=== PATIENT | female | born 1935 | race Caucasian/White ===

== ENCOUNTER 2020-01-29 22:11 | Emergency (ER) | payer MEDICARE, BC ==
[2020-01-29 22:26] VITALS: BP 179/105; PULSE 72; RESP 20; TEMP 98.6
[2020-01-29] MEDS ORDERED: BACITRACIN OINT 1 EACH PACKET TOPICAL ONE (22:54)
--- NOTE | 2020-01-29 22:57 | ED ---
Wound/Laceration HPI - General Chief Complaint: Wound/Laceration Stated Complaint: arm lac Time Seen by Provider: 01/29/20 22:32 Source: patient, family Mode of arrival: ambulatory Limitations: no limitations - History of Present Illness Initial Comments: 84-year-old female patient presents to the emergency department today for evaluation of laceration to the right wrist. Patient states that she hit her wrist on the door jam causing the injury. This occurred a few hours ago and patient continues to have bleeding to the area. They did clean the wound and apply a bandage. Patient denies any wrist pain or difficulty with range of motion. Denies numbness or tingling to the hands. She states she did receive a tetanus vaccine 1 year ago. Denies any other injury or concerns. Patient denies any headache, neck pain, back pain, chest pain, shortness of breath, dizziness, weakness, abdominal pain, nausea, vomiting, or difficulties with bowel movements or urination. - Related Data Allergies Allergy/AdvReac Type Severity Reaction Status Date / Time No Known Allergies Allergy Verified 01/29/20 22:26 Review of Systems ROS Statement: Those systems with pertinent positive or pertinent negative responses have been documented in the HPI. ROS Other: All systems not noted in ROS Statement are negative. Past Medical History Past Medical History: No Reported History History of Any Multi-Drug Resistant Organisms: None Reported Past Surgical History: No Surgical Hx Reported Past Psychological History: No Psychological Hx Reported Smoking Status: Never smoker Past Alcohol Use History: None Reported Past Drug Use History: None Reported General Exam Limitations: no limitations General appearance: alert, in no apparent distress, other (This is a well- developed, well-nourished adult female patient in no acute distress. Vital signs upon presentation are temperature 98.6F, pulse 72, respirations 20, blood pressure 179/105, pulse ox 97% on room air.) Respiratory exam: Present: normal lung sounds bilaterally. Absent: respiratory distress, wheezes, rales, rhonchi, stridor Cardiovascular Exam: Present: regular rate, normal rhythm, normal heart sounds. Absent: systolic murmur, diastolic murmur, rubs, gallop, clicks Extremities exam: Present: full ROM, normal capillary refill, other (There is sm all skin tear to the left wrist. Mild bleeding noted. full range of motion is intact to the right wrist. No anatomical snuffbox tenderness. Skin is otherwise pink, warm, dry. Cap refills less than 3 seconds. Radial pulses 2+.). Absent: normal inspection, tenderness, pedal edema, joint swelling, calf tenderness Neurological exam: Present: alert, oriented X3, CN II-XII intact Psychiatric exam: Present: normal affect, normal mood Skin exam: Present: warm, dry, intact, normal color. Absent: rash Course Vital Signs 01/29/20 22:22 Temperature 98.6 F Pulse Rate 72 Respiratory 20 Rate Blood Pressure 179/105 O2 Sat by Pulse 97 Oximetry Medical Decision Making - Medical Decision Making 84 old female patient percents into the emergency department today for evaluation of wound to the right wrist. Physical examination did reveal very tiny skin tear, less than 1 cm. There was mild bleeding noted. Wound was cleansed. Bacitracin applied. Pressure dressing applied. She is instructed to remove this in the morning. She is instructed to follow-up with her primary care physician for recheck in 1-2 days. Return parameters were discussed in detail. Patient and family member verbalize understanding and agree with this plan. Disposition Clinical Impression: Tear of skin of right wrist Disposition: HOME SELF-CARE Condition: Good Instructions (If sedation given, give patient instructions): Skin Tear (ED) Additional Instructions: Keep wound clean and dry. Cleanse twice daily with warm water and antibacterial soap. Keep covered until healed. Follow-up with your primary care physician for recheck in 1-2 days. Return to the emergency department immediately for any new, worsening, or concerning symptoms. Is patient prescribed a controlled substance at d/c from ED?: No Referrals: Néstor Chery DO [Primary Care Provider] - 1-2 days Time of Disposition: 22:56
== END 2020-01-29 23:14 | disposition home or self-care (01) ==
LOC: EC 22:11
DX: S61.511A Laceration without foreign body of right wrist, initial encounter (principal); W22.8XXA Striking against or struck by other objects, initial encounter
CPT/HCPCS: 99282

== ENCOUNTER → 2020-09-09 | Outpatient (CLI) | payer MEDICARE, BC ==
--- NOTE | 2020-09-09 13:04 | CT ---
EXAMINATION TYPE: CT brain wo con DATE OF EXAM: 09/09/2020 COMPARISON: None HISTORY: dementia CT DLP: 927.3 mGycm Automated exposure control for dose reduction was used. FINDINGS: Moderate generalized degenerative change with a greater central component. There is diffuse low atten uation in the white matter. No acute hemorrhage or mass effect. No midline shift. Calvarium intact. O rbits are symmetric. No significant changes of sinusitis. Intracranial atherosclerotic changes are no mars. IMPRESSION: MODERATE DEGENERATIVE AND DIFFUSE NONSPECIFIC WHITE MATTER CHANGES MOST TYPICAL REMOTE WHITE MATTER I SCHEMIA. SLIGHTLY GREATER CENTRAL COMPONENT OF THE VENTRICULAR SYSTEM RAISES THE POSSIBILITY OF REESE L PRESSURE HYDROCEPHALUS WITH TRANSEPENDYMAL EDEMA CORRELATE CLINICALLY.
== END | disposition home or self-care (01) ==
LOC: RADCTMAIN 12:20
PROVIDERS: ATTEND Family Medicine
DX: I67.82 Cerebral ischemia (principal)
CPT/HCPCS: 70450

== ENCOUNTER → 2020-09-09 | Outpatient (CLI) | payer MEDICARE, BC ==
--- NOTE | 2020-09-09 16:56 | US ---
EXAMINATION TYPE: US carotid duplex BILAT DATE OF EXAM: 09/09/2020 COMPARISON: NONE CLINICAL HISTORY: F03.90 Unspecified dementia without behavioral dis. Dementia EXAM MEASUREMENTS: RIGHT: Peak Systolic Velocity (PSV) cm/sec ----- Right CCA: 71.3 ----- Right ICA: 95.8 ----- Right ECA: 120 ICA/CCA ratio: 1.3 RIGHT: End Diastole cm/sec ----- Right CCA: 20.4 ----- Right ICA: 23.8 ----- Right ECA: 120 LEFT: Peak Systolic Velocity (PSV) cm/sec ----- Left CCA: 78.8 ----- Left ICA: 92.4 ----- Left ECA: 111 ICA/CCA ratio: 1.2 LEFT: End Diastole cm/sec ----- Left CCA: 17 ----- Left ICA: 22.4 ----- Left ECA: 10.9 VERTEBRALS (direction of flow): Right Vertebral: Antegrade Left Vertebral: Antegrade Rhythm: Normal No evidence of hemodynamically significant stenosis. Mild bilateral atherosclerotic plaque at the com mon carotid bifurcations. IMPRESSION: 1. Less than 50% stenosis of the bilateral internal carotid arteries. There is no evidence of hemodyn amically significant stenosis. There is mild astrocyte plaque at the bilateral common carotid artery bifurcations. Criteria for Assigning % of Stenosis / Diameter reduction (Estimation based on the indirect measurements of the internal carotid artery velocities (ICA PSV). 1. Normal (no stenosis)=ICA PSV < 125 cm/s: ratio < 2.0: ICA EDV<40 cm/s. 2. Less than 50% stenosis=ICA PSV < 125 cm/s: ratio < 2.0: ICA EDV<40 cm/s. 3. 50 to 69% stenosis=ICA PSV of 125 to 230 cm/s: ration 2.0 ? 4.0: ICA EDV 40-100 cm/s. 4. Greater than 70% stenosis to near occlusion= ICA PSV > 230 cm/s: ratio > 4.0: ICA EDV > 100 cm/s. 5. Near occlusion= ICA PSV velocities may be low or undetectable: variable ratio and ICA EDV. 6. Total occlusion=unable to detect flow.
== END | disposition home or self-care (01) ==
LOC: RADUSWWP 12:43
PROVIDERS: ATTEND Family Medicine
DX: F03.90 Unspecified dementia, unspecified severity, without behavioral disturbance, psychotic disturbance, mood disturbance, and anxiety (principal); I65.23 Occlusion and stenosis of bilateral carotid arteries
CPT/HCPCS: 93880

== ENCOUNTER → 2020-10-28 | Outpatient (CLI) | payer MEDICARE, BC ==
[2020-10-28 18:36] LABS: Basophils # (A) 0.04 X 10*3/uL (0.00-0.10); Basophils % (A) 0.4 %; Eosinophils # (A) 0.09 X 10*3/uL (0.04-0.35); HCT 39.8 % (37.2-46.3); Lymphocytes # (A) 1.67 X 10*3/uL (0.90-5.00); Lymphocytes % (A) 17.9 %; MCHC 32.7 g/dL (32.0-37.0); Mean Platelet Volume 10.7 fL (9.5-12.2); Monocytes # (A) 0.62 X 10*3/uL (0.20-1.00); Monocytes % (A) 6.6 %; Neutrophils # (A) 6.89 X 10*3/uL (1.80-7.70); Neutrophils % (A) 73.9 %; Platelet Count 265 X 10*3/uL (140-440); RBC 4.19 X 10*6/uL (4.10-5.20); RDW 14.4 % (11.5-14.5); WBC 9.33 X 10*3/uL (4.50-10.00)
[2020-10-29 04:57] LABS: African American GFR (CKD) 67.1 (60.0-200.0); Albumin 4.3 g/dL (3.80-4.90); Albumin/Globulin Ratio 1.59 (1.60-3.17); Anion Gap 11.1 mmol/L (4.00-12.00); BUN/Creat Ratio 14.44 Ratio (12.00-20.00); Calcium 9.6 mg/dL (8.7-10.3); Carbon Dioxide 22.9 mmol/L (21.6-31.8); Globulin 2.7 g/dL (1.6-3.3); Non-African American GFR(CKD) 57.9 (60.0-200.0); Potassium 5.4 mmol/L (3.5-5.5); Total Bilirubin 0.5 mg/dL (0.2-1.2)
[2020-10-29 05:06] LABS: T4, Free (Free Thyroxine) 1.2 ng/dL (0.80-1.80)
== END | disposition home or self-care (01) ==
LOC: LABWHC1 11:23
PROVIDERS: ATTEND Nurse Practitioner Acute Care
DX: E55.9 Vitamin D deficiency, unspecified (principal); R41.3 Other amnesia; R53.83 Other fatigue
CPT/HCPCS: 36415; 80053; 82306; 82607; 84207; 84439; 84443; 84481; 85025

== ENCOUNTER 2021-08-02 11:56 | Emergency (ER) | payer MEDICARE, BC ==
--- NOTE | 2021-08-02 13:42 | XR ---
EXAMINATION TYPE: XR ankle complete LT DATE OF EXAM: 08/02/2021 COMPARISON: None HISTORY: Pain TECHNIQUE: 3 view left ankle FINDINGS: Ankle mortise is intact as visualized. Soft tissues appear normal. No acute displaced fract ure is evident. Note is made of prior fixation with screws within the distal metatarsals on the lateral projection a small plantar calcaneal heel spur. Follow up exams can be performed 7-10 days from acute trauma for continued pain. IMPRESSION: 1. No acute osseous abnormality. Follow-up can be performed as clinically indicated.
[2021-08-02] MEDS ORDERED: KETOROLAC 15 MG/ML 1 ML VIAL IVP STA (14:24)
--- NOTE | 2021-08-02 14:30 | ED ---
Lower Extremity Injury HPI - General Chief Complaint: Extremity Injury, Lower Stated Complaint: ANKLE PAIN Time Seen by Provider: 08/02/21 13:37 Source: patient, RN notes reviewed Mode of arrival: wheelchair Limitations: no limitations - History of Present Illness Initial Comments: This is a 85-year-old female presents emergency Department with chief complaint of left ankle pain. Patient states symptoms started last 24 hours in which the family notes that she is having some pain left ankle there is small amount of swelling or redness. She has discomfort with ambulation but cannot remember any known injury. No fevers or chills no paresthesias no other complaints. Patient had prior left foot surgery - Related Data Previous Rx's Medication Instructions Recorded Cephalexin [Keflex] 500 mg PO Q6HR #28 cap 08/02/21 Naproxen 500 mg PO 12 #14 tablet 08/02/21 Allergies Allergy/AdvReac Type Severity Reaction Status Date / Time No Known Allergies Allergy Verified 08/02/21 13:06 Review of Systems ROS Statement: Those systems with pertinent positive or pertinent negative responses have been documented in the HPI. ROS Other: All systems not noted in ROS Statement are negative. Past Medical History Past Medical History: No Reported History History of Any Multi-Drug Resistant Organisms: None Reported Past Surgical History: No Surgical Hx Reported Past Psychological History: No Psychological Hx Reported Smoking Status: Never smoker Past Alcohol Use History: None Reported Past Drug Use History: None Reported General Exam Limitations: no limitations General appearance: alert, in no apparent distress Head exam: Present: atraumatic, normocephalic, normal inspection Eye exam: Present: normal appearance, PERRL, EOMI. Absent: scleral icterus, conjunctival injection, periorbital swelling Respiratory exam: Present: normal lung sounds bilaterally. Absent: respiratory distress, wheezes, rales, rhonchi, stridor Cardiovascular Exam: Present: regular rate, normal rhythm, normal heart sounds. Absent: systolic murmur, diastolic murmur, rubs, gallop, clicks Extremities exam: Present: other (Left ankle there is swelling noted has mild erythema pulses equal bilaterally patient's full range of motion and minimal discomfort with palpation.) Course Vital Signs 08/02/21 13:07 Temperature 98.2 F Pulse Rate 73 Respiratory 16 Rate Blood Pressure 138/93 O2 Sat by Pulse 98 Oximetry Medical Decision Making - Medical Decision Making 85-year-old was on for her left ankle possible injury there is some noted skin erythema but no pain with joint movement. Labs are really specific findings. X-ray was unremarkable. I do believe the patient may had an injury possible early cellulitis type changes less likely would be joint infection. Patient will be given antibiotics, anti-inflammatories close follow-up with orthopedics and return parameters were discussed. - Lab Data Result diagrams: 08/02/21 14:05 08/02/21 14:05 Lab Results 08/02/21 08/02/21 Range/Units 14:05 14:05 WBC 13.7 H (3.8-10.6) k/uL RBC 4.25 (3.80-5.40) m/uL Hgb 13.2 (11.4-16.0) gm/dL Hct 40.5 (34.0-46.0) % MCV 95.4 (80.0-100.0) fL MCH 31.1 (25.0-35.0) pg MCHC 32.6 (31.0-37.0) g/dL RDW 13.8 (11.5-15.5) % Plt Count 286 (150-450) k/uL MPV 8.2 Neutrophils % 86 % Lymphocytes % 9 % Monocytes % 4 % Eosinophils % 0 % Basophils % 0 % Neutrophils # 11.7 H (1.3-7.7) k/uL Lymphocytes # 1.2 (1.0-4.8) k/uL Monocytes # 0.5 (0-1.0) k/uL Eosinophils # 0.0 (0-0.7) k/uL Basophils # 0.0 (0-0.2) k/uL Sodium 140 (137-145) mmol/L Potassium 4.5 (3.5-5.1) mmol/L Chloride 102 (98-107) mmol/L Carbon Dioxide 29 (22-30) mmol/L Anion Gap 9 mmol/L BUN 13 (7-17) mg/dL Creatinine 0.87 (0.52-1.04) mg/dL Est GFR (CKD-EPI)AfAm 69 (>60 ml/min/1.73 sqM) Est GFR (CKD-EPI)NonAf 60 (>60 ml/min/1.73 sqM) Glucose 102 H (74-99) mg/dL Uric Acid 4.5 (3.7-7.4) mg/dL Calcium 9.4 (8.4-10.2) mg/dL Disposition Clinical Impression: Left ankle pain, Cellulitis of left foot Disposition: HOME SELF-CARE Condition: Serious Instructions (If sedation given, give patient instructions): Cellulitis (ED) Additional Instructions: Please return to the Emergency Department if symptoms worsen or any other concerns. Prescriptions: Cephalexin [Keflex] 500 mg PO Q6HR #28 cap Naproxen 500 mg PO 12 #14 tablet Is patient prescribed a controlled substance at d/c from ED?: No Referrals: Néstor Chery DO [Primary Care Provider] - 1-2 days Ángel Acosta MD [Medical Doctor] - 1-2 days Time of Disposition: 15:25
[2021-08-02 14:37] LABS: Basophils % (A) 0 %; Eosinophils % (A) 0 %; HCT 40.5 % (34.0-46.0); HGB 13.2 gm/dL (11.4-16.0); Lymphocytes # (A) 1.2 k/uL (1.0-4.8); Lymphocytes % (A) 9 %; MCH 31.1 pg (25.0-35.0); MCHC 32.6 g/dL (31.0-37.0); MCV 95.4 fL (80.0-100.0); Mean Platelet Volume 8.2; Monocytes # (A) 0.5 k/uL (0-1.0); Monocytes % (A) 4 %; Neutrophils # (A) 11.7 k/uL (1.3-7.7); Neutrophils % (A) 86 %; Platelet Count 286 k/uL (150-450); RBC 4.25 m/uL (3.80-5.40); RDW 13.8 % (11.5-15.5); WBC 13.7 k/uL (3.8-10.6)
[2021-08-02 14:56] LABS: Calcium 9.4 mg/dL (8.4-10.2); Potassium 4.5 mmol/L (3.5-5.1); Uric Acid 4.5 mg/dL (3.7-7.4)
[2021-08-02 15:45] LABS: C Reactive Protein 8.9 mg/dL (<1.0)
[2021-08-02 16:36] VITALS: BP 147/75; PULSE 66; RESP 14; TEMP 98.5
== END 2021-08-02 17:01 | disposition home or self-care (01) ==
LOC: EC 11:56
DX: L03.116 Cellulitis of left lower limb (principal)
CPT/HCPCS: 36415; 80048; 84550; 85025; 86140; 73610; 99283; 96365; 96375; J0690; J1885

== ENCOUNTER → 2022-08-01 | Outpatient (CLI) | payer MEDICARE, BC ==
[2022-08-01 17:14] LABS: African American GFR (CKD) 59 (>60 ml/min/1.73 sqM); Anion Gap 6 mmol/L; Blood Urea Nitrogen 24 mg/dL (7-17); Calcium 9.6 mg/dL (8.4-10.2); Carbon Dioxide 31 mmol/L (22-30); Chloride 102 mmol/L (98-107); Glucose 97 mg/dL (74-99); Non-African American GFR(CKD) 51 (>60 ml/min/1.73 sqM); Sodium 139 mmol/L (137-145)
== END | disposition home or self-care (01) ==
LOC: LABWHC1 16:01
PROVIDERS: ATTEND Family Medicine
DX: I10 Essential (primary) hypertension (principal); N10 Acute pyelonephritis
CPT/HCPCS: 36415; 80048

== ENCOUNTER 2022-10-06 17:06 | Observation (INO) | payer MEDICARE, BC ==
--- NOTE | 2022-10-06 17:49 | ED ---
General Adult HPI - General Chief complaint: Altered Mental Status Stated complaint: poss UTI Time Seen by Provider: 10/06/22 17:23 Source: patient, RN notes reviewed Mode of arrival: ambulatory Limitations: no limitations - History of Present Illness Initial comments: 86-year-old female presents emergency department with daughter and son for chief complaint of increased confusion. Patient has a history dementia her family reports the past 2 days she has been more confused than usual. Family states that she has a left-sided ureteral stent that his been in for about a month with planned removal on 10/24/22. Family is worried that she has a UTI. Patient states that she is generally feeling well. Denies abdominal pain, chest pain, shortness of breath. Daughter states that she has been taking her temp at home and she has not been running a fever. - Related Data Home Medications Medication Instructions Recorded Confirmed No Known Home Medications 10/06/22 10/06/22 Allergies Allergy/AdvReac Type Severity Reaction Status Date / Time codeine Allergy Anaphylaxis Verified 10/06/22 20:50 Review of Systems ROS Statement: Those systems with pertinent positive or pertinent negative responses have been documented in the HPI. ROS Other: All systems not noted in ROS Statement are negative. Past Medical History Past Medical History: No Reported History Additional Past Medical History / Comment(s): UTI, ureter stent, History of Any Multi-Drug Resistant Organisms: None Reported Past Surgical History: No Surgical Hx Reported Past Psychological History: No Psychological Hx Reported Smoking Status: Never smoker Past Alcohol Use History: None Reported Past Drug Use History: None Reported General Exam Limitations: no limitations General appearance: alert, in no apparent distress Head exam: Present: atraumatic, normocephalic, normal inspection Eye exam: Present: normal appearance, PERRL, EOMI. Absent: scleral icterus, conjunctival injection, periorbital swelling ENT exam: Present: normal exam, mucous membranes moist Neck exam: Present: normal inspection. Absent: tenderness, meningismus, lymphadenopathy Respiratory exam: Present: normal lung sounds bilaterally. Absent: respiratory distress, wheezes, rales, rhonchi, stridor Cardiovascular Exam: Present: regular rate, normal rhythm, normal heart sounds. Absent: systolic murmur, diastolic murmur, rubs, gallop, clicks GI/Abdominal exam: Present: soft, normal bowel sounds. Absent: distended, tenderness, guarding, rebound, rigid Extremities exam: Present: normal inspection, full ROM, normal capillary refill. Absent: tenderness, pedal edema, joint swelling, calf tenderness Back exam: Present: normal inspection. Absent: CVA tenderness (R), CVA tenderness (L) Expanded Patient oriented to: Present: person, place Cranial nerves: EOM's Intact: Normal, Gag Reflex: Normal, Facial Sensation: Normal Upper motor neuron: Pronator Drift: Normal (none) Motor strength exam: RUE: 5, LUE: 5, RLE: 5, LLE: 5 Eye Response: (4) open spontaneously Motor Response: (6) obeys commands Verbal Response: (5) oriented Marli Total: 15 Psychiatric exam: Present: normal affect, normal mood Skin exam: Present: warm, dry, intact, normal color. Absent: rash Course Vital Signs 10/06/22 10/06/22 10/06/22 17:18 19:18 21:31 Temperature 98.4 F 98.4 F Pulse Rate 78 74 74 Respiratory 18 18 Rate Blood Pressure 150/92 152/81 137/88 O2 Sat by Pulse 96 97 98 Oximetry Medical Decision Making - Medical Decision Making Was pt. sent in by a medical professional or institution (ALEXIS Valle, SAFETY CONSULTANT, urgent care, hospital, or long term...) When possible be specific @ -No Did you speak to anyone other than the patient for history (EMS, parent, family, police, friend...)? What history was obtained from this source @ -patient daughter and son provided some of the history for this patient Did you review nursing and triage notes (agree or disagree)? Why? @ -I reviewed and agree with nursing and triage notes Were old charts reviewed (outside hosp., previous admission, EMS record, old EKG, old radiological studies, urgent care reports/EKG's, long term records)? Report findings @ -No old charts were reviewed Differential Diagnosis (chest pain, altered mental status, abdominal pain women, abdominal pain men, vaginal bleeding, weakness, fever, dyspnea, syncope, headache, dizziness, GI bleed, back pain, seizure, CVA, palpatations, mental health, musculoskeletal)? @ -UTI, pyelo, Differential Altered Mental Status: Hypoglycemia, DKA, hypercapnia, ETOH, overdose, CO poisoning, trauma, myxedema coma, HTN encephalopathy, infection, encephalitis, psychosis, intercranial hemorrhage, hepatic encephalopathy, meningitis, CVA, this is not meant to be an all-inclusive list EKG interpreted by me (3pts min.). @ -EKG at 1801 showed sinus rhythm rate 70, MS 204, QRS 81 X-rays interpreted by me (1pt min.). 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 @ -None done U/S interpreted by me (1pt. min.). @ -None done What testing was considered but not performed or refused? (CT, X-rays, U/S, labs)? Why? @ -None What meds were considered but not given or refused? Why? @ -None Did you discuss the management of the patient with other professionals (haydee gonzales i.e. , PA, SAFETY CONSULTANT, lab, RT, psych nurse, health care social worker, conventions assistant, teacher, ambulance officer, protective services case worker)? Give summary @ -yes case discussed with Criss Pretty with [facility] who is accepting of the admission for IV antibiotics and fluids Was smoking cessation discussed for >3mins.? @ -No Was critical care preformed (if so, how long)? @ -No Were there social determinants of health that impacted care today? How? (Homelessness, low income, unemployed, alcoholism, drug addiction, transportation, low edu. Level, literacy, decrease access to med. care, [facility], rehab)? @ -No Was there de-escalation of care discussed even if they declined (Discuss DNR or withdrawal of care, Hospice)? DNR status @ -No What co-morbidities impacted this encounter? (DM, HTN, Smoking, COPD, CAD, Cancer, CVA, ARF, Chemo, Hep., AIDS, mental health diagnosis, sleep apnea, morbid obesity)? @ -None Was patient admitted / discharged? Hospital course, mention meds given and route, prescriptions, significant lab abnormalities, going to OR and other pertinent info. @ -admitted. Patient presented to the emergency department for chief complaint of increased confusion according to daughter and son. CBC shows WBC 6.6, hematocrit 42.9, hemoglobin 14.2; CMP shows sodium 129, potassium 5.3, chloride 95; UA shows trace blood, positive nitrate, large leukocyte esterase, 139 WBCs. Discussed with family admission versus home. Chest x-ray shows no evidence for acute cardiopulmonary process, KUB shows ureteral stent in place. Family was wishing to have the patient admitted as they did not feel that she is safe to care for herself at home. Case is discussed with Criss Pretty with [facility] who is accepting of the patient for IV antibiotics and fluids. Patient was given 1 g of Rocephin and maintenance fluids at 75 mls/hour. Patient stable at time of admission. Case discussed with my attending, Dr. Ford Undiagnosed new problem with uncertain prognosis? @ -No Drug Therapy requiring intensive monitoring for toxicity (Heparin, Nitro, Insulin, Cardizem)? @ -No Were any procedures done? @ -No Diagnosis/symptom? @ -UTI Acute, or Chronic, or Acute on Chronic? @ -acute Uncomplicated (without systemic symptoms) or Complicated (systemic symptoms)? @ -uncomplicated Side effects of treatment? @ -No Exacerbation, Progression, or Severe Exacerbation? @ -No Poses a threat to life or bodily function? How? (Chest pain, [place], AL, pneumonia, PE, COPD, DKA, ARF, appy, cholecystitis, CVA, Diverticulitis, Homicidal, Suicidal, threat to staff... and all critical care pts) @ -No - Lab Data Result diagrams: 10/06/22 18:18 10/06/22 18:18 Lab Results 10/06/22 10/06/22 10/06/22 Range/Units 17:52 18:18 18:18 WBC 6.6 (3.8-10.6) k/uL RBC 4.62 (3.80-5.40) m/uL Hgb 14.2 (11.4-16.0) gm/dL Hct 42.9 (34.0-46.0) % MCV 93.0 (80.0-100.0) fL MCH 30.9 (25.0-35.0) pg MCHC 33.2 (31.0-37.0) g/dL RDW 13.8 (11.5-15.5) % Plt Count 228 (150-450) k/uL MPV 8.3 Neutrophils % 65 % Lymphocytes % 28 % Monocytes % 5 % Eosinophils % 1 % Basophils % 0 % Neutrophils # 4.3 (1.3-7.7) k/uL Lymphocytes # 1.8 (1.0-4.8) k/uL Monocytes # 0.3 (0-1.0) k/uL Eosinophils # 0.1 (0-0.7) k/uL Basophils # 0.0 (0-0.2) k/uL PT 10.3 (9.0-12.0) sec INR 1.0 (<1.2) APTT 25.8 (22.0-30.0) sec Sodium (137-145) mmol/L Potassium (3.5-5.1) mmol/L Chloride (98-107) mmol/L Carbon Dioxide (22-30) mmol/L Anion Gap mmol/L BUN (7-17) mg/dL Creatinine (0.52-1.04) mg/dL Est GFR (CKD-EPI)AfAm (>60 ml/min/1.73 sqM) Est GFR (CKD-EPI)NonAf (>60 ml/min/1.73 sqM) Glucose (74-99) mg/dL POC Glucose (mg/dL) (70-110) mg/dL POC Glu Aquatic Biologist ID Plasma Lactic Acid Kit (0.7-2.0) mmol/L Calcium (8.4-10.2) mg/dL Total Bilirubin (0.2-1.3) mg/dL AST (14-36) U/L ALT (4-34) U/L Alkaline Phosphatase (38-126) U/L Total Protein (6.3-8.2) g/dL Albumin (3.5-5.0) g/dL Urine Color Yellow Urine Appearance Cloudy H (Clear) Urine pH 6.5 (5.0-8.0) Ur Specific [place] 1.015 (1.001-1.035) Urine Protein 1+ H (Negative) Urine Glucose (UA) Negative (Negative) Urine Ketones Negative (Negative) Urine Blood Trace H (Negative) Urine Nitrite Positive H (Negative) Urine Bilirubin Negative (Negative) Urine Urobilinogen <2.0 (<2.0) mg/dL Ur Leukocyte Esterase Large H (Negative) Urine RBC 11 H (0-5) /hpf Urine WBC 139 H (0-5) /hpf Urine WBC Clumps Many H (None) /hpf Ur Squamous Epith Cells <1 (0-4) /hpf Urine Bacteria Rare H (None) /hpf Urine Mucus Rare H (None) /hpf 10/06/22 10/06/22 10/06/22 Range/Units 18:18 18:18 18:30 WBC (3.8-10.6) k/uL RBC (3.80-5.40) m/uL Hgb (11.4-16.0) gm/dL Hct (34.0-46.0) % MCV (80.0-100.0) fL MCH (25.0-35.0) pg MCHC (31.0-37.0) g/dL RDW (11.5-15.5) % Plt Count (150-450) k/uL MPV Neutrophils % % Lymphocytes % % Monocytes % % Eosinophils % % Basophils % % Neutrophils # (1.3-7.7) k/uL Lymphocytes # (1.0-4.8) k/uL Monocytes # (0-1.0) k/uL Eosinophils # (0-0.7) k/uL Basophils # (0-0.2) k/uL PT (9.0-12.0) sec INR (<1.2) APTT (22.0-30.0) sec Sodium 129 L (137-145) mmol/L Potassium 5.3 H (3.5-5.1) mmol/L Chloride 95 L (98-107) mmol/L Carbon Dioxide 28 (22-30) mmol/L Anion Gap 6 mmol/L BUN 20 H (7-17) mg/dL Creatinine 0.75 (0.52-1.04) mg/dL Est GFR (CKD-EPI)AfAm 82 (>60 ml/min/1.73 sqM) Est GFR (CKD-EPI)NonAf 72 (>60 ml/min/1.73 sqM) Glucose 92 (74-99) mg/dL POC Glucose (mg/dL) 97 (70-110) mg/dL POC Glu Aquatic Biologist Madi Bowser Plasma Lactic Acid Kit 0.9 (0.7-2.0) mmol/L Calcium 9.1 (8.4-10.2) mg/dL Total Bilirubin 0.5 (0.2-1.3) mg/dL AST 29 (14-36) U/L ALT 15 (4-34) U/L Alkaline Phosphatase 110 (38-126) U/L Total Protein 7.3 (6.3-8.2) g/dL Albumin 4.1 (3.5-5.0) g/dL Urine Color Urine Appearance (Clear) Urine pH (5.0-8.0) Ur Specific [place] (1.001-1.035) Urine Protein (Negative) Urine Glucose (UA) (Negative) Urine Ketones (Negative) Urine Blood (Negative) Urine Nitrite (Negative) Urine Bilirubin (Negative) Urine Urobilinogen (<2.0) mg/dL Ur Leukocyte Esterase (Negative) Urine RBC (0-5) /hpf Urine WBC (0-5) /hpf Urine WBC Clumps (None) /hpf Ur Squamous Epith Cells (0-4) /hpf Urine Bacteria (None) /hpf Urine Mucus (None) /hpf Disposition Clinical Impression: UTI (urinary tract infection) Disposition: ADMITTED IP TO THIS HOSP Condition: Stable Is patient prescribed a controlled substance at d/c from ED?: No Time of Disposition: 20:16
[2022-10-06 18:22] LABS: Appearance,Urine Cloudy (Clear); Bacteria,Urine Rare /hpf; Bilirubin,Urine Negative (Negative); Blood,Urine Trace (Negative); Color,Urine Yellow; Glucose,Urine (UA) Negative (Negative); Ketones,Urine Negative (Negative); Leukocyte Esterase,Urine Large (Negative); Mucus,Urine Rare /hpf; Nitrite,Urine Positive (Negative); PH, Urine 6.5 (5.0-8.0); Protein,Urine 1+ (Negative); RBC,Urine 11 /hpf (0-5); Specific Gravity,Urine 1.015 (1.001-1.035); Squamous Epithelial Cell,Urine <1 /hpf (0-4); Urobilinogen,Urine <2.0 mg/dL (<2.0); WBC,Urine 139 /hpf (0-5)
[2022-10-06 18:45] LABS: Basophils % (A) 0 %; Eosinophils # (A) 0.1 k/uL (0-0.7); Eosinophils % (A) 1 %; HCT 42.9 % (34.0-46.0); HGB 14.2 gm/dL (11.4-16.0); Lymphocytes # (A) 1.8 k/uL (1.0-4.8); Lymphocytes % (A) 28 %; MCH 30.9 pg (25.0-35.0); MCHC 33.2 g/dL (31.0-37.0); Mean Platelet Volume 8.3; Monocytes # (A) 0.3 k/uL (0-1.0); Monocytes % (A) 5 %; Neutrophils # (A) 4.3 k/uL (1.3-7.7); Neutrophils % (A) 65 %; Platelet Count 228 k/uL (150-450); RBC 4.62 m/uL (3.80-5.40); RDW 13.8 % (11.5-15.5); WBC 6.6 k/uL (3.8-10.6)
[2022-10-06 18:47] LABS: Glucose,Whole Blood 97 mg/dL (70-110)
[2022-10-06 18:57] LABS: Partial Thromboplastin Time 25.8 sec (22.0-30.0); Prothrombin Time 10.3 sec (9.0-12.0)
[2022-10-06 18:58] LABS: ALT 15 U/L (4-34); AST 29 U/L (14-36); African American GFR (CKD) 82 (>60 ml/min/1.73 sqM); Albumin 4.1 g/dL (3.5-5.0); Alkaline Phosphatase 110 U/L (38-126); Anion Gap 6 mmol/L; Blood Urea Nitrogen 20 mg/dL (7-17); Calcium 9.1 mg/dL (8.4-10.2); Carbon Dioxide 28 mmol/L (22-30); Chloride 95 mmol/L (98-107); Non-African American GFR(CKD) 72 (>60 ml/min/1.73 sqM); Potassium 5.3 mmol/L (3.5-5.1); Sodium 129 mmol/L (137-145); Total Bilirubin 0.5 mg/dL (0.2-1.3); Total Protein 7.3 g/dL (6.3-8.2)
--- NOTE | 2022-10-06 19:20 | XR ---
EXAMINATION TYPE: XR chest 2V DATE OF EXAM: 10/06/2022 COMPARISON: NONE HISTORY: Shortness of breath TECHNIQUE: Frontal and lateral views of the chest are obtained. FINDINGS: Scattered senescent parenchymal changes noted. Hyperinflation compatible with COPD. No evidence for infiltrate. No evidence for atelectasis. Heart size is stable. Mediastinal structures are stable and grossly unremarkable. No evidence for hilar prominence. Degenerative changes dorsal spine. IMPRESSION: 1. No evidence for acute pulmonary disease.
--- NOTE | 2022-10-06 19:21 | XR ---
EXAMINATION TYPE: XR KUB DATE OF EXAM: 10/06/2022 COMPARISON: NONE HISTORY: Pain TECHNIQUE: Single supine KUB image of the abdomen is obtained FINDINGS: Left ureteral stent is in place with proximal component overlying the region of the left renal pelvis and distal component within the urinary bladder. No definite calcification along the course of the s tent. Probable uterine calcified fibroid noted overlying the midline of the pelvis. Assumed ventricul operitoneal catheter coiled within the upper abdomen. Correlate clinically. Small bowel demonstrates no evidence for dilatation or air fluid levels. Gas and fecal material is seen in non-distended colon. No convincing evidence for pneumoperitoneum. No unusual calcifications. The lung bases are clear. The osseous structures are intact. IMPRESSION: 1. As above
[2022-10-06 19:35] LABS: Glucose 92 mg/dL (74-99)
[2022-10-06] MEDS ORDERED: ACETAMINOPHEN TAB 325 MG TAB PO PRN (20:25)
[2022-10-06] MEDS ORDERED: NALOXONE 0.4 MG/ML 1 ML VIAL IV PRN (20:25)
[2022-10-06] MEDS: SODIUM CHLORIDE 0.9% 1,000 ML IV SCH (21:21)
[2022-10-07 07:11] LABS: Basophils % (A) 0 %; Eosinophils # (A) 0.1 k/uL (0-0.7); Eosinophils % (A) 2 %; HGB 13.6 gm/dL (11.4-16.0); Lymphocytes # (A) 2.3 k/uL (1.0-4.8); Lymphocytes % (A) 30 %; MCHC 32.4 g/dL (31.0-37.0); MCV 95.6 fL (80.0-100.0); Mean Platelet Volume 7.9; Monocytes # (A) 0.5 k/uL (0-1.0); Monocytes % (A) 7 %; Neutrophils # (A) 4.5 k/uL (1.3-7.7); Neutrophils % (A) 59 %; Platelet Count 236 k/uL (150-450); RDW 13.7 % (11.5-15.5); WBC 7.6 k/uL (3.8-10.6)
[2022-10-07 07:19] LABS: African American GFR (CKD) 72 (>60 ml/min/1.73 sqM); Anion Gap 5 mmol/L; Blood Urea Nitrogen 15 mg/dL (7-17); Calcium 9.1 mg/dL (8.4-10.2); Carbon Dioxide 29 mmol/L (22-30); Chloride 101 mmol/L (98-107); Glucose 88 mg/dL (74-99); Non-African American GFR(CKD) 62 (>60 ml/min/1.73 sqM); Potassium 4.8 mmol/L (3.5-5.1); Sodium 135 mmol/L (137-145)
[2022-10-07 07:46] VITALS: BP 132/84; PULSE 74; RESP 16; TEMP 98.4
--- NOTE | 2022-10-07 13:02 | P.DS ---
Providers Date of admission: 10/06/22 20:40 Attending physician: Abdifatah Medina Primary care physician: [facility] Course: 86-year-old female with advanced dementia possibly vascular was brought in by family because patient is more confused than usual. His confusional episodes are usually at nighttime, patient's family is close by and patient stays by herself at nighttime. Patient denied any dysuria patient is at her baseline at this time patient is fever chills leukocytosis denied any suprapubic pain. Patient's serum sodium was low on admission which improved with IV fluids. Patient doesn't drink or eat well. Thin built female patient had a recent ureteral stent urine is slightly abnormal with a white blood cell count secondary in WBC. REVIEW OF SYSTEMS: Rest of review of systems is negative except those mentioned above PHYSICAL EXAMINATION: GENERAL: The patient is alert and oriented x2, not in any acute distress. Thin built elderly female HEENT: Pupils are round and equally reacting to light. EOMI. No scleral icterus. No conjunctival pallor. Normocephalic, atraumatic. No pharyngeal erythema. No thyromegaly. CARDIOVASCULAR: S1 and S2 present. No murmurs, rubs, or gallops. PULMONARY: Chest is clear to auscultation, no wheezing or crackles. ABDOMEN: Soft, nontender, nondistended, normoactive bowel sounds. No palpable organomegaly. MUSCULOSKELETAL: No joint swelling or deformity. EXTREMITIES: No cyanosis, clubbing, or pedal edema. NEUROLOGICAL: Gross neurological examination did not reveal any focal deficits. SKIN: No rashes. Assessment and plan -Altered mental status, increased confusional episodes, occasional hallucinations: These are most probably due to hyponatremia, dehydration and/or advanced dementia. There is no clinical evidence of urinary tract infection urine is abnormal this is a symptomatically bacteriuria not require any antibiotics and antiemetics will be discontinued patient will be discharged today serum sodium improved. Patient was evaluated by physical therapy occupational therapy and the sexual assault social worker information regarding 8 seizure home 24 supervision care was provided to family members were wanted to take the patient home. -Hypovolemic hyponatremia -Hyperkalemia: Secondary to dehydration improved now with IV fluids -advanced vascular dementia Patient will be discharged today Patient Condition at Discharge: Stable Plan - Discharge Summary Discharge Rx Participant: No New Discharge Prescriptions: New QUEtiapine [SEROquel] 12.5 mg PO HS PRN #60 tab PRN Reason: Agitation Discharge Medication List QUEtiapine [SEROquel] 12.5 mg PO HS PRN #60 tab 10/07/22 [Rx] Follow up Appointment(s)/Referral(s): Néstor Chery DO [Primary Care Provider] - 1-[facility] Discharge/Stand Alone Forms: Adult Foster Custodial List, Assisted Living Facilities, Community Resources, Help In The Home Discharge Disposition: HOME WITH HOME HEALTH SERVICES
--- NOTE | 2022-10-07 13:02 | P.HPIM ---
History of Present Illness 86-year-old female with advanced dementia possibly vascular was brought in by family because patient is more confused than usual. His confusional episodes are usually at nighttime, patient's family is close by and patient stays by h erself at nighttime. Patient denied any dysuria patient is at her baseline at this time patient is fever chills leukocytosis denied any suprapubic pain. Patient's serum sodium was low on admission which improved with IV fluids. Patient doesn't drink or eat well. Thin built female patient had a recent ureteral stent urine is slightly abnormal with a white blood cell count secondary in WBC. REVIEW OF SYSTEMS: Rest of review of systems is negative except those mentioned above PHYSICAL EXAMINATION: GENERAL: The patient is alert and oriented x2, not in any acute distress. Thin built elderly female HEENT: Pupils are round and equally reacting to light. EOMI. No scleral icterus. No conjunctival pallor. Normocephalic, atraumatic. No pharyngeal erythema. No thyromegaly. CARDIOVASCULAR: S1 and S2 present. No murmurs, rubs, or gallops. PULMONARY: Chest is clear to auscultation, no wheezing or crackles. ABDOMEN: Soft, nontender, nondistended, normoactive bowel sounds. No palpable organomegaly. MUSCULOSKELETAL: No joint swelling or deformity. EXTREMITIES: No cyanosis, clubbing, or pedal edema. NEUROLOGICAL: Gross neurological examination did not reveal any focal deficits. SKIN: No rashes. Assessment and plan -Altered mental status, increased confusional episodes, occasional hallucinations: These are most probably due to hyponatremia, dehydration and/or advanced dementia. There is no clinical evidence of urinary tract infection urine is abnormal this is a symptomatically bacteriuria not require any antibiotics and antiemetics will be discontinued patient will be discharged today serum sodium improved. Patient was evaluated by physical therapy occupational therapy and the drug abuse social worker information regarding 8 seizure home 24 supervision care was provided to family members were wanted to take the patient home. -Hypovolemic hyponatremia -Hyperkalemia: Secondary to dehydration improved now with IV fluids -advanced vascular dementia Patient will be discharged today Past Medical History Past Medical History: No Reported History Additional Past Medical History / Comment(s): UTI, ureter stent, History of Any Multi-Drug Resistant Organisms: None Reported Past Surgical History: No Surgical Hx Reported Past Anesthesia/Blood Transfusion Reactions: No Reported Reaction Past Psychological History: No Psychological Hx Reported Smoking Status: Never smoker Past Alcohol Use History: None Reported Past Drug Use History: None Reported Medications and Allergies Home Medications Medication Instructions Recorded Confirmed Type QUEtiapine [SEROquel] 12.5 mg PO HS PRN #60 tab 10/07/22 Rx Allergies Allergy/AdvReac Type Severity Reaction Status Date / Time codeine Allergy Anaphylaxis Verified 10/06/22 20:50 Physical Exam Vitals: Vital Signs Temp Pulse Pulse Resp BP BP Pulse Ox 10/07/22 07:43 98.4 F 74 16 132/84 95 10/07/22 02:22 97.9 F 79 18 146/85 97 10/07/22 00:05 16 10/06/22 22:21 98.4 F 75 16 158/77 99 10/06/22 21:31 98.4 F 74 18 137/88 98 10/06/22 19:18 74 152/81 97 10/06/22 17:18 98.4 F 78 18 150/92 96 Intake and Output 10/06/22 10/07/22 10/07/22 22:59 06:59 14:59 Intake Total 1100 Balance 1100 Intake: Intake, IV Titration 800 Amount Sodium Chloride 0.9% 1, 800 000 ml @ 75 mls/hr IV . [id number] [facility] Rx#:[id number] Oral 300 Other: Voiding Method Toilet Toilet Diaper Diaper # Voids 4 Weight 48.081 kg Results CBC & Chem 7: 10/07/22 06:45 10/07/22 06:45 Labs: Abnormal Lab Results - Last 24 Hours (Table) 10/06/22 10/06/22 10/07/22 Range/Units 17:52 18:18 06:45 Sodium 129 L 135 L (137-145) mmol/L Potassium 5.3 H (3.5-5.1) mmol/L Chloride 95 L (98-107) mmol/L BUN 20 H (7-17) mg/dL Urine Appearance Cloudy H (Clear) Urine Protein 1+ H (Negative) Urine Blood Trace H (Negative) Urine Nitrite Positive H (Negative) Ur Leukocyte Esterase Large H (Negative) Urine RBC 11 H (0-5) /hpf Urine WBC 139 H (0-5) /hpf Urine WBC Clumps Many H (None) /hpf Urine Bacteria Rare H (None) /hpf Urine Mucus Rare H (None) /hpf Thrombosis Risk Factor Assmnt - Choose All That Apply Any of the Below Risk Factors Present?: Yes Each Factor Represents 1 point: Swollen legs (current) Other Risk Factors: Yes Each Risk Factor Represents 2 Points: Malignancy Each Risk Factor Represents 3 Points: Age 75 years or older Thrombosis Risk Factor Assessment Total Risk Factor Score: 6 Thrombosis Risk Factor Assessment Level: High Risk
[2022-10-07] MEDS: SODIUM CHLORIDE 0.9% 1,000 ML IV SCH (13:37)
== END 2022-10-07 13:57 | disposition home health service (06) ==
LOC: EC 17:06 → 6NMEDSUR 20:40 → 5NMEDONC 21:36
PROVIDERS: ADMIT Hospitalist; ATTEND Hospitalist
DX: R44.3 Hallucinations, unspecified (principal); R41.82 Altered mental status, unspecified; E86.1 Hypovolemia; E87.1 Hypo-osmolality and hyponatremia; E86.0 Dehydration; E87.5 Hyperkalemia; Z96.0 Presence of urogenital implants; F01.C0 Vascular dementia, severe, without behavioral disturbance, psychotic disturbance, mood disturbance, and anxiety; Z79.899 Other long term (current) drug therapy; Z88.5 Allergy status to narcotic agent
CPT/HCPCS: 96365; 99285; 36415; 93005; 97162; 80053; 80048; 83605; 85025 ×2; 85610; 85730; 81001; 87086; 71046; 74018; G0378 ×3; J0696

== ENCOUNTER → 2022-11-28 | Outpatient (CLI) | payer MEDICARE, BC ==
--- NOTE | 2022-11-28 16:18 | US ---
EXAMINATION TYPE: US kidneys/renal and bladder DATE OF EXAM: 11/28/2022 COMPARISON: CLINICAL INDICATION: Female, 87 years old with history of N13.30 HYDRONEPHROSIS; Hx of left stent wit h removal x 6 weeks ago. EXAM MEASUREMENTS: Right Kidney: 8.5 x 4.7 x 4.4 cm Left Kidney: 7.5 x 3.6 x 4.0 cm Right Kidney: No hydronephrosis or masses seen Left Kidney: Cortical thinning. Moderate/severe hydronephrosis. Bladder: distended, anechoic Bilateral Jets not seen IMPRESSION: 1. Hydronephrosis left kidney. Consider additional workup.
== END | disposition home or self-care (01) ==
LOC: RADUSWWP 13:24
PROVIDERS: ATTEND Urology
DX: N13.30 Unspecified hydronephrosis (principal)
CPT/HCPCS: 76770